=== PATIENT | male | born 1970 | race Caucasian/White ===

== ENCOUNTER 2017-01-16 07:53 | Emergency (ER) | payer SELFPAY ==
[~2017-01-16] VITALS: Wt 74.8 kg
--- NOTE | ~2017-01-16 | EKG ---
[place], [place] ELECTROCARDIOGRAM REPORT NAME: YOHAN STOUT UNIT #: [id number] ROOM: DOCTOR: NIKKI CAT MD BIRTHDATE: [birth year] DOS: 01/16/2017 TIME: 0820 hours. Normal sinus rhythm at 77 beats per minute. The tracing is normal. No previous tracing is available for comparison. NIKKI CAT MD CM:EKGRPT:ELECTROCARDIOGRAM REPORT [id number] NIKKI CAT MD
[~2017-01-16 07:53] MED LIST: 'PARAFON FORTE500 M1 PO; AMOXICILLIN500 MG PO; AMOXIL500 M1 PO; ATORVASTATIN CA20 M1 PO; AUGMENTIN 875875 MG PO; AZITHROMYCIN250 MG PO; CLARITIN-D 12 H1 TAB PO; DAYPRO600 M1 PO; GLIPIZIDE10 M2 PO; GLYBURIDE; HYDROCODONE BIT1 T11 PO; LISINOPRIL10 M1 PO; MEDROL DOSEPAK4 MG PO; METFORMIN HCL500 MG PO; METFORMIN1000 MG PO; NAPROSYN500 MG PO; PERCOCET 325 MG1 TA7; ROBAXIN750 MG PO; TAMIFLU 75MG CA75 MG PO; TYLENOL325 M1 PO; Tobrex Ophth S2.5 ML OPH; ZITHROMAX250 MG PO; ZYRTEC10 MG PO
[2017-01-16 08:41] LABS: BASO % 0.4 % (0.0-1.0); EOS # 0.1 10*3/uL (0.0-0.4); EOS % 0.9 % (1.0-4.0); HEMATOCRIT 42.3 % (42.0-52.0); HEMOGLOBIN 14.9 g/dl (14.0-18.0); LYMPH # 0.8 10*3/uL (1.3-4.4); LYMPH % 13.6 % (27.0-41.0); MEAN CELL VOLUME 85.6 fl (80.0-94.0); MEAN CORPUSCULAR HGB 30.2 pg (27.0-31.0); MEAN CORPUSCULAR HGB CONC 35.2 g/dl (33.0-37.0); MEAN PLATELET VOLUME 11.3 fl (9.6-12.3); MONO # 0.6 10*3/uL (0.1-1.0); MONO % 10.8 % (3.0-9.0); NEUT # 4.2 10*3/uL (2.3-7.9); NEUT % 74.1 % (47.0-73.0); PLATELET COUNT AUTOMATED 192 10*3/uL (130-400); RED BLOOD COUNT 4.94 10*6/uL (4.50-5.90); RED CELL DISTRI WIDTH 12.1 % (0-14.5); WHITE BLOOD COUNT 5.7 10*3/uL (4.8-10.8)
[2017-01-16 08:58] LABS: ALBUMIN 3.6 gm/dl (3.1-4.5); ALKALINE PHOSPHATASE 74 U/L (45-117); BUN 14 mg/dl (7-24); CHLORIDE 96 mmol/L (98-107); CREATININE 0.95 mg/dL (0.70-1.30); MAGNESIUM 2.1 mg/dL (1.5-2.1); SGOT/AST 10 IU/L (3-35); SGPT/ALT 19 U/L (12-78); SODIUM 132 mmol/L (136-145); TOTAL PROTEIN 6.8 gm/dL (6.4-8.2)
[2017-01-16 08:59] LABS: ETHYL ALCOHOL < 3.0 mg/dl (<3)
[2017-01-16 09:07] LABS: BILIRUBIN NEGATIVE (NEGATIVE); BLOOD NEGATIVE (NEGATIVE); CLARITY CLEAR (CLEAR); COLOR YELLOW (YELLOW); GLUCOSE 3+ (NEGATIVE); KETONE NEGATIVE (NEGATIVE); LEUKO ESTERASE NEGATIVE (NEGATIVE); NITRITE NEGATIVE (NEGATIVE); PH 5.5 (5.0-9.0); SPECIFIC GRAVITY <= 1.005 (1.005-1.030); UROBILINOGEN 0.2 E.U./dl (0.2-1.0)
[2017-01-16] MEDS ORDERED: METFORMIN850 MG PO (09:15)
[2017-01-16 09:17] LABS: EPITHELIAL CELLS 0-2; RBC 0-2 rbc/hpf (0-2)
== END 2017-01-16 10:00 | disposition home or self-care (01) ==
LOC: ED 07:53
PROVIDERS: Emergency Medicine
DX: E11.65 Type 2 diabetes mellitus with hyperglycemia (principal); F17.200 Nicotine dependence, unspecified, uncomplicated

== ENCOUNTER 2017-03-25 06:23 | Emergency (ER) | payer SELFPAY ==
[~2017-03-25] VITALS: Ht 180.3 cm; Wt 96.6 kg
[~2017-03-25 06:23] MED LIST changes: +METFORMIN850 MG PO
== END 2017-03-25 11:45 | disposition short-term general hospital (02) ==
LOC: ED 06:23
DX: M54.16 Radiculopathy, lumbar region (principal); F17.200 Nicotine dependence, unspecified, uncomplicated; E11.65 Type 2 diabetes mellitus with hyperglycemia

== ENCOUNTER 2017-04-09 21:34 | Emergency (ER) | payer MEDICAID ==
[~2017-04-09] VITALS: Ht 180.3 cm; Wt 75.7 kg
== END 2017-04-10 02:12 | disposition short-term general hospital (02) ==
LOC: ED 21:34
DX: M54.16 Radiculopathy, lumbar region (principal); G89.29 Other chronic pain; E11.65 Type 2 diabetes mellitus with hyperglycemia; R20.0 Anesthesia of skin

== ENCOUNTER 2017-08-16 19:54 | Inpatient (IN) | payer OTHER ==
[~2017-08-16] VITALS: Ht 180.3 cm; Wt 77.1 kg
[2017-08-16 19:59] VITALS: BP 141/81
[2017-08-16 20:25] LABS: BASO % 0.5 % (0.0-1.0); EOS % 0.5 % (1.0-4.0); HEMATOCRIT 41.6 % (42.0-52.0); HEMOGLOBIN 15.1 g/dl (14.0-18.0); LYMPH # 1.2 10*3/uL (1.3-4.4); LYMPH % 15.3 % (27.0-41.0); MEAN CELL VOLUME 83.9 fl (80.0-94.0); MEAN CORPUSCULAR HGB 30.4 pg (27.0-31.0); MEAN CORPUSCULAR HGB CONC 36.3 g/dl (33.0-37.0); MEAN PLATELET VOLUME 11.8 fl (9.6-12.3); MONO # 0.5 10*3/uL (0.1-1.0); MONO % 5.9 % (3.0-9.0); NEUT # 6.1 10*3/uL (2.3-7.9); NEUT % 77.4 % (47.0-73.0); PLATELET COUNT AUTOMATED 304 10*3/uL (130-400); RED BLOOD COUNT 4.96 10*6/uL (4.50-5.90); RED CELL DISTRI WIDTH 12.1 % (0-14.5); WHITE BLOOD COUNT 7.9 10*3/uL (4.8-10.8)
[2017-08-16 21:25] LABS: ALBUMIN 3.3 gm/dl (3.1-4.5); ALKALINE PHOSPHATASE 73 U/L (45-117); BUN 11 mg/dl (7-24); CHLORIDE 100 mmol/L (98-107); CREATININE 1.05 mg/dL (0.70-1.30); POTASSIUM 3.8 mmol/L (3.5-5.1); SGOT/AST 29 IU/L (3-35); SGPT/ALT 33 U/L (12-78); SODIUM 136 mmol/L (136-145); TOTAL PROTEIN 6.4 gm/dL (6.4-8.2)
[2017-08-16 21:27] LABS: TROPONIN I < 0.015 ng/ml (<0.045)
[2017-08-16 22:34] LABS: ABG BASE EXCESS 2.6 mmol/L (-2.0-2.0); ABG HCO3 27.5 mmol/l (22-26); ABG O2 SATURATION 97.2 % (95-97); ARTERIAL BLOOD GAS PH 7.402 (7.35-7.45); ARTERIAL BLOOD GAS PO2 77.5 mmHg (80-90)
[2017-08-16 23:19] VITALS: BP 121/77
[2017-08-16 23:34] LABS: BILIRUBIN NEGATIVE (NEGATIVE); BLOOD NEGATIVE (NEGATIVE); CLARITY CLEAR (CLEAR); COLOR YELLOW (YELLOW); GLUCOSE 3+ (NEGATIVE); KETONE TRACE (NEGATIVE); LEUKO ESTERASE NEGATIVE (NEGATIVE); NITRITE NEGATIVE (NEGATIVE); PH 5.5 (5.0-9.0); SPECIFIC GRAVITY <= 1.005 (1.005-1.030); UROBILINOGEN 0.2 E.U./dl (0.2-1.0)
[2017-08-16 23:43] LABS: WBC 0-2 wbc/hpf (0-5)
[2017-08-17 00:25] VITALS: BP 125/78
[2017-08-17 06:46] LABS: BASO % 0.4 % (0.0-1.0); EOS # 0.2 10*3/uL (0.0-0.4); EOS % 2.2 % (1.0-4.0); HEMATOCRIT 38.6 % (42.0-52.0); HEMOGLOBIN 13.3 g/dl (14.0-18.0); LYMPH # 2.2 10*3/uL (1.3-4.4); LYMPH % 27.4 % (27.0-41.0); MEAN CELL VOLUME 86.9 fl (80.0-94.0); MEAN CORPUSCULAR HGB CONC 34.5 g/dl (33.0-37.0); MEAN PLATELET VOLUME 11.2 fl (9.6-12.3); MONO # 0.6 10*3/uL (0.1-1.0); MONO % 7.5 % (3.0-9.0); NEUT % 62.1 % (47.0-73.0); RED BLOOD COUNT 4.44 10*6/uL (4.50-5.90); RED CELL DISTRI WIDTH 12.3 % (0-14.5); WHITE BLOOD COUNT 8.1 10*3/uL (4.8-10.8)
[2017-08-17 06:51] LABS: PLATELET COUNT AUTOMATED 195 10*3/uL (130-400)
[2017-08-17 06:54] LABS: ACT PARTIAL THROMBO TIME 21.8 SECONDS (20.8-31.5)
[2017-08-17 07:09] LABS: ALBUMIN 3.1 gm/dl (3.1-4.5); BUN 16 mg/dl (7-24); CHLORIDE 105 mmol/L (98-107); SODIUM 140 mmol/L (136-145)
[2017-08-17 07:17] LABS: ALKALINE PHOSPHATASE 59 U/L (45-117); CHOLESTEROL 213 mg/dL (<200); CREATININE 0.87 mg/dL (0.70-1.30); FREE T4 0.85 ng/dl (0.76-1.46); HDL CHOLESTEROL 35 mg/dl (40-60); LDL CHOLESTEROL 140 mg/dL (9-159); PHOSPHOROUS 4.1 mg/dL (2.5-4.9); SGOT/AST 12 IU/L (3-35); SGPT/ALT 23 U/L (12-78); TOTAL PROTEIN 5.6 gm/dL (6.4-8.2); TRIGLYCERIDES 190 mg/dl (<150); VLDL CHOLESTEROL 38 mg/dL (6-40)
[2017-08-17 08:00] VITALS: BP 120/76
[2017-08-17 08:00] LABS: VITAMIN D, 25-HYDROXY 21.8 ng/mL (30-100)
[2017-08-17 12:00] VITALS: BP 121/58
[2017-08-17 16:00] VITALS: BP 118/83; BP 141/89
[2017-08-17 20:00] VITALS: BP 137/85
[2017-08-18] VITALS: BP 132/85
[2017-08-18 06:15] LABS: BUN 13 mg/dl (7-24); CHLORIDE 103 mmol/L (98-107); CREATININE 0.86 mg/dL (0.70-1.30); POTASSIUM 3.7 mmol/L (3.5-5.1); SODIUM 139 mmol/L (136-145)
[2017-08-18 06:48] LABS: BASO % 0.6 % (0.0-1.0); EOS # 0.2 10*3/uL (0.0-0.4); EOS % 2.7 % (1.0-4.0); HEMATOCRIT 42.7 % (42.0-52.0); HEMOGLOBIN 14.5 g/dl (14.0-18.0); LYMPH % 30.2 % (27.0-41.0); MEAN CELL VOLUME 87.5 fl (80.0-94.0); MEAN CORPUSCULAR HGB 29.7 pg (27.0-31.0); MEAN PLATELET VOLUME 11.3 fl (9.6-12.3); MONO # 0.5 10*3/uL (0.1-1.0); MONO % 7.3 % (3.0-9.0); NEUT % 58.8 % (47.0-73.0); PLATELET COUNT AUTOMATED 219 10*3/uL (130-400); RED BLOOD COUNT 4.88 10*6/uL (4.50-5.90); RED CELL DISTRI WIDTH 12.1 % (0-14.5); WHITE BLOOD COUNT 6.8 10*3/uL (4.8-10.8)
[2017-08-18 08:00] VITALS: BP 121/86
[2017-08-18] MEDS ORDERED: VITAMIN D-32000 UNIT PO (10:08)
[2017-08-18] MEDS ORDERED: ASPIRIN ADULT L81 M2 PO (10:08)
[2017-08-18] MEDS ORDERED: Humalog SQ (10:08)
[2017-08-18] MEDS ORDERED: LISINOPRIL2.5 MG PO (10:08)
[2017-08-18] MEDS ORDERED: ATORVASTATIN CA40 M1 PO (10:08)
[2017-08-18] MEDS ORDERED: Lantus SC (10:08)
== END 2017-08-18 11:36 | disposition home or self-care (01) | DRG 637 ==
LOC: ED 19:54 → 4E 22:43 → EDHOLD 22:43 → 4E 23:09
PROVIDERS: Family Medicine; Internal Medicine Hospice and Palliative Medicine; Student in an Organized Health Care Education/Training Program
DX: E11.00 Type 2 diabetes mellitus with hyperosmolarity without nonketotic hyperglycemic-hyperosmolar coma (NKHHC) (principal); R65.11 Systemic inflammatory response syndrome (SIRS) of non-infectious origin with acute organ dysfunction; E44.1 Mild protein-calorie malnutrition; E11.65 Type 2 diabetes mellitus with hyperglycemia; R79.89 Other specified abnormal findings of blood chemistry; E83.51 Hypocalcemia; E86.0 Dehydration; D64.9 Anemia, unspecified; F41.9 Anxiety disorder, unspecified; F32.9 Major depressive disorder, single episode, unspecified; M54.16 Radiculopathy, lumbar region; M54.31 Sciatica, right side; Z98.52 Vasectomy status; Z71.6 Tobacco abuse counseling; Z72.0 Tobacco use; Z91.19 Patient's noncompliance with other medical treatment and regimen; Z82.49 Family history of ischemic heart disease and other diseases of the circulatory system; Z83.6 Family history of other diseases of the respiratory system; Z68.23 Body mass index [BMI] 23.0-23.9, adult

== ENCOUNTER → 2017-08-23 | Outpatient (CLI) | payer OTHER ==
[~2017-08-23] MED LIST changes: +ASPIRIN ADULT L81 M2 PO; +ATORVASTATIN CA40 M1 PO; +Humalog SQ; +LISINOPRIL2.5 MG PO; +Lantus SC; +VITAMIN D-32000 UNIT PO
== END | disposition home or self-care (01) ==
LOC: RESCLI 01:55
DX: E11.65 Type 2 diabetes mellitus with hyperglycemia (principal); E78.5 Hyperlipidemia, unspecified; E55.9 Vitamin D deficiency, unspecified

== ENCOUNTER 2017-09-11 17:28 | Emergency (ER) | payer OTHER ==
[~2017-09-11] VITALS: Ht 180.3 cm; Wt 78.5 kg
[2017-09-11] MEDS ORDERED: ROBAXIN500 M1 PO (17:59)
[2017-09-11] MEDS ORDERED: MEDROL DOSEPAK4 MG PO (17:59)
== END 2017-09-11 18:10 | disposition home or self-care (01) ==
LOC: ED 17:28
DX: M54.16 Radiculopathy, lumbar region (principal); Z98.52 Vasectomy status; Z79.899 Other long term (current) drug therapy

== ENCOUNTER 2017-09-14 19:41 | Emergency (ER) | payer OTHER ==
[~2017-09-14] VITALS: Ht 180.3 cm; Wt 77.1 kg
[~2017-09-14 19:41] MED LIST changes: +ROBAXIN500 M1 PO
[2017-09-14] MEDS ORDERED: PREDNISONE20 M1 PO (19:53)
[2017-09-14] MEDS ORDERED: NAPROSYN500 MG PO (19:53)
[2017-09-14] MEDS ORDERED: CYCLOBENZAPRINE10 MG PO (19:53)
== END 2017-09-14 20:21 | disposition home or self-care (01) ==
LOC: ED 19:41
DX: M54.41 Lumbago with sciatica, right side (principal); G89.29 Other chronic pain

== ENCOUNTER 2018-02-23 10:00 | Emergency (ER) | payer OTHER ==
[~2018-02-23] VITALS: Ht 180.3 cm; Wt 81.6 kg
--- NOTE | ~2018-02-23 | EKG ---
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
[~2018-02-23 10:00] MED LIST changes: +CYCLOBENZAPRINE10 MG PO; +PREDNISONE20 M1 PO
[2018-02-23 10:32] LABS: BASO # 0.1 10*3/uL (0.0-0.1); BASO % 0.7 % (0.0-1.0); EOS # 0.1 10*3/uL (0.0-0.4); EOS % 1.5 % (1.0-4.0); HEMATOCRIT 41.7 % (42.0-52.0); LYMPH # 1.7 10*3/uL (1.3-4.4); LYMPH % 22.1 % (27.0-41.0); MEAN CELL VOLUME 83.1 fl (80.0-94.0); MEAN CORPUSCULAR HGB 29.9 pg (27.0-31.0); MEAN PLATELET VOLUME 10.4 fl (9.6-12.3); MONO # 0.5 10*3/uL (0.1-1.0); MONO % 6.2 % (3.0-9.0); NEUT # 5.2 10*3/uL (2.3-7.9); NEUT % 69.2 % (47.0-73.0); PLATELET COUNT AUTOMATED 219 10*3/uL (130-400); RED BLOOD COUNT 5.02 10*6/uL (4.50-5.90); RED CELL DISTRI WIDTH 11.6 % (0-14.5); WHITE BLOOD COUNT 7.5 10*3/uL (4.8-10.8)
[2018-02-23 10:43] LABS: ACT PARTIAL THROMBO TIME 21.6 SECONDS (20.8-31.5)
[2018-02-23 10:47] LABS: BILIRUBIN NEGATIVE (NEGATIVE); BLOOD NEGATIVE (NEGATIVE); CLARITY CLEAR (CLEAR); COLOR YELLOW (YELLOW); GLUCOSE 3+ (NEGATIVE); KETONE NEGATIVE (NEGATIVE); LEUKO ESTERASE NEGATIVE (NEGATIVE); NITRITE NEGATIVE (NEGATIVE); PH 6.5 (5.0-9.0); UROBILINOGEN 0.2 E.U./dl (0.2-1.0)
[2018-02-23 10:47] LABS: ALBUMIN 3.6 gm/dl (3.1-4.5); ALKALINE PHOSPHATASE 81 U/L (45-117); BUN 16 mg/dl (7-24); CHLORIDE 98 mmol/L (98-107); CREATININE 0.75 mg/dL (0.70-1.30); LIPASE 242 U/L (73-393); POTASSIUM 4.4 mmol/L (3.5-5.1); SGOT/AST 9 IU/L (3-35); SGPT/ALT 22 U/L (12-78); SODIUM 131 mmol/L (136-145); TOTAL PROTEIN 6.8 gm/dL (6.4-8.2); TROPONIN I < 0.015 ng/ml (<0.045)
[2018-02-23 10:58] LABS: EPITHELIAL CELLS 0-2; RBC 0-2 rbc/hpf (0-2); WBC 0-2 wbc/hpf (0-5)
[2018-02-23] MEDS ORDERED: Zofran4 MG SL (11:26)
== END 2018-02-23 11:45 | disposition home or self-care (01) ==
LOC: ED 10:00
PROVIDERS: Nurse Practitioner Family
DX: K52.9 Noninfective gastroenteritis and colitis, unspecified (principal); E11.9 Type 2 diabetes mellitus without complications; Z79.1 Long term (current) use of non-steroidal anti-inflammatories (NSAID); Z79.82 Long term (current) use of aspirin; Z79.899 Other long term (current) drug therapy

== ENCOUNTER 2018-03-24 10:57 | Emergency (ER) | payer SELFPAY ==
[~2018-03-24] VITALS: Ht 180.3 cm; Wt 81.6 kg
[~2018-03-24 10:57] MED LIST changes: +Zofran4 MG SL
[2018-03-24 12:36] LABS: BASO % 0.6 % (0.0-1.0); EOS # 0.2 10*3/uL (0.0-0.4); EOS % 2.4 % (1.0-4.0); HEMOGLOBIN 15.3 g/dl (14.0-18.0); LYMPH # 1.8 10*3/uL (1.3-4.4); LYMPH % 25.5 % (27.0-41.0); MEAN CELL VOLUME 83.8 fl (80.0-94.0); MEAN CORPUSCULAR HGB 29.8 pg (27.0-31.0); MEAN CORPUSCULAR HGB CONC 35.6 g/dl (33.0-37.0); MEAN PLATELET VOLUME 10.4 fl (9.6-12.3); MONO # 0.6 10*3/uL (0.1-1.0); NEUT # 4.5 10*3/uL (2.3-7.9); NEUT % 63.2 % (47.0-73.0); PLATELET COUNT AUTOMATED 243 10*3/uL (130-400); RED BLOOD COUNT 5.13 10*6/uL (4.50-5.90); RED CELL DISTRI WIDTH 11.9 % (0-14.5); WHITE BLOOD COUNT 7.2 10*3/uL (4.8-10.8)
[2018-03-24 12:52] LABS: ALBUMIN 3.6 gm/dl (3.1-4.5); ALKALINE PHOSPHATASE 77 U/L (45-117); BUN 14 mg/dl (7-24); CHLORIDE 102 mmol/L (98-107); CREATININE 0.94 mg/dL (0.70-1.30); POTASSIUM 4.1 mmol/L (3.5-5.1); SGOT/AST 16 IU/L (3-35); SGPT/ALT 24 U/L (12-78); SODIUM 134 mmol/L (136-145); TOTAL PROTEIN 7.2 gm/dL (6.4-8.2)
[2018-03-24] MEDS ORDERED: VIBRAMYCIN100 MG PO (14:09)
[2018-03-24] MEDS ORDERED: FLONASE ALLERG9.9 ML NAS (14:09)
== END 2018-03-24 11:55 | disposition home or self-care (01) ==
LOC: ED 10:57
PROVIDERS: Nurse Practitioner
DX: J01.90 Acute sinusitis, unspecified (principal); E11.9 Type 2 diabetes mellitus without complications

== ENCOUNTER 2019-04-12 21:58 | Emergency (ER) | payer OTHER ==
[~2019-04-12] VITALS: Wt 77.1 kg
[~2019-04-12 21:58] MED LIST changes: +FLONASE ALLERG9.9 ML NAS; +VIBRAMYCIN100 MG PO
[2019-04-13] MEDS ORDERED: IBU800 MG PO (00:22)
== END 2019-04-13 00:36 | disposition home or self-care (01) ==
LOC: ED 21:58
DX: G89.29 Other chronic pain (principal); M25.512 Pain in left shoulder; E11.9 Type 2 diabetes mellitus without complications; Y08.89XA Assault by other specified means, initial encounter; Y93.89 Activity, other specified; Y92.89 Other specified places as the place of occurrence of the external cause; Y99.8 Other external cause status